=== PATIENT | male | born 1965 | race Caucasian/White ===

== ENCOUNTER 2018-01-27 14:30 | Observation (INO) | payer BC, SELFPAY ==
[2018-01-27] VITALS (10 sets, daily range): BP systolic 121–149; BP diastolic 65–96; PULSE 70–96; RESP 16–18; TEMP 36.3–36.9; O2SAT 93–100; BMI 26.0
--- NOTE | 2018-01-27 | THYROID_PTH ---
PATIENT: JESSICA DSOUZA LOC: [facility] U#:[id number] AGE/SX: 52/M ROOM: [facility]318 RE01/27/[address]: Dr. Jose J Mitchell MD : [id number] BED: 1 DIS: 01/28/2018 SPEC #: [id number] RECD: 01/27/18 12:42 STATUS: ALVARO REVida #: [id number] RUT: 01/27/18 00:[address]: Jose J Mitchell DEPT: SURGICAL PATHOLOGY RECD BY: Alanna Cid ENTERED: 01/27/18 14:46 SP TYPE: THYROID OTHR DR: Out of Town Doctor Tissues: A - Thyroid gland, NOS B - Thyroid gland, NOS Procedures: Frozen Section (charge) Frozen Section [facility] Surgery Specimen Level V HEADER OPERATION: Total thyroidectomy PRE-OP DIAGNOSIS: Multinodular goiter, hyperthyroidism TISSUE SUBMITTED: A - Thyroid gland left lobe sent 1237, B - Thyroid gland right lobe sent 1334 FROZEN SECTION DIAGNOSIS A. Thyroid, left lobe, lobectomy: Multinodular goiter. B. Right thyroid lobe, lobectomy: Multinodular goiter. SUBHA:jaren 01/27/18 MICROSCOPIC DIAGNOSIS A. Left thyroid lobe, lobectomy: Multinodular goiter with adenomatoid nodules. B. Right thyroid lobe, lobectomy: Multinodular goiter with adenomatoid nodules. SUBHA:jaren 01/30/18 MICROSCOPIC DESCRIPTION Slides are reviewed. GROSS DESCRIPTION A - Received fresh for frozen section diagnosis labeled with the patient's name is a specimen designated thyroid left lobe. The specimen consists of a thyroid lobectomy specimen weighing 89.6 gm. The specimen consists of two large nodules. One of the nodules measure 8 x 5 x 4 cm and the second nodule measures 7 x 4 x 3 cm. One of the nodules anterior surfaces is inked green and other nodule anterior surface is inked blue. The posterior surface of both nodules is inked black. Sections of these two large nodules reveal multinodular cut surfaces. The largest nodule measures 4 cm in greatest dimension. Sections of these nodules reveal colloid cut surfaces. No solid nodule is noted. A section of the largest nodule is submitted for frozen section diagnosis. Medical Records Clerk sections are submitted in 12 cassettes. Cassette 1 contains the frozen section. B - Received fresh for frozen section diagnosis labeled with the patient's name is a specimen designated right thyroid lobe. The specimen consists of a thyroid lobectomy specimen weighing 21.2 gm and measuring 6.5 x 4 x 2 cm. A detached piece of nodular tissue is also noted measuring 3 x 2.5 x 1 cm. Serial sections reveal multiple nodules. The largest nodule measures 1 cm in greatest dimension. Two frozen sections are done. Frozen section 1 - nodule in the thyroid lobe, 2 - detached piece of tissue. Medical Records Clerk sections are submitted in 12 cassettes as follows: 1 & 2 - frozen section, 3 - rest of the detached piece of nodule, 4-12 - thyroid lobe. 90% of the specimen is submitted. / SJ:jaren 01/27/18 TC:5 CPT: 50324 x2, 03544 x2, 71269
--- NOTE | 2018-01-27 08:59 | EKG12_ITS ---
Test Reason : PRE OP Blood Pressure : / mmHG Vent. Rate : 068 BPM Atrial Rate : 068 BPM P-R Int : 164 ms QRS Dur : 090 ms QT Int : 380 ms P-R-T Axes : 073 027 047 degrees QTc Int : 404 ms Normal sinus rhythm Low voltage QRS (limb leads) Confirmed by Andreea Chavira ([id number]), non linear editor MOUSTAPHA CASTRO ([id number]) on 01/30/2018 3:39:23 PM Referred By: Jose J Mitchell Confirmed By:Andreea Chavira
[2018-01-27 09:31] LABS: Anion Gap 3 (5-15); BUN 17 mg/dL (7-18); BUN/Creat Ratio 19.1 RATIO (10-20); Calcium,Total 8.7 mg/dL (8.5-10.1); Chloride 102 mmol/L (98-107); Creatinine, Serum 0.89 mg/dL (0.70-1.30); EST Glomerular Filtration Rate 96 mL/min (>60); Est Glom Filt Rate - Afr Amer 116 mL/min (>60); Glucose 87 mg/dL (74-106); Potassium 3.6 mmol/L (3.5-5.1); Sodium Level 137 mmol/L (136-145)
--- NOTE | 2018-01-27 14:25 | PCM.OPRPT ---
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 Although he did not have overt compressive symptoms there is massive nodules limiting the veracity of needle biopsies and requiring ongoing assessment and surgical treatment was offered for definitive evaluation as well as stabilization of his hyperthyroid state and he is eager to proceed. The risks, alternatives, potential benefits, and complications were discussed at length and any questions answered to the patient and/or caregiver's satisfaction. Witnessed informed consent was obtained in the office, and the patient and/or caregiver was agreeable to proceed. Procedure went as follows: The patient was identified in the preoperative holding and brought to the operating room, placed under general anesthesia and intubated. The neuro monitoring electrodes were then placed in the chest and confirmed to be operational in accordance with the park interpretive ranger's directions to allow for recurrent laryngeal nerve monitoring. The neck was then prepped and draped in usual sterile fashion and the planned skin incision was marked 2 finger breadths above the sternal notch with a marking pen. The incisional line was then injected with 1% lidocaine with 100,000 epinephrine for a total of 6 cc. After allowing for vasoconstriction, a 15 blade scalpel was used to make an incision 8 cm in length through the skin and subcutaneous tissues and platysma. A subplatysmal flap was then elevated superiorly and inferiorly to allow placement of the self-retaining thyroid retractor. The strap muscles were then divided in the midline and beginning on the left side the thyroid lobe dissected in a sub-capsular fashion. The inferior, middle, and superior thyroid vessels were individually clamped and ligated with a combination of 3-0 silk sutures and vascular clips. The parathyroid glands were identified along the inferior vascular pedicle and preserved the recurrent laryngeal nerve was also identified and followed to its nerve entry point and the thyroid gland dissected free of its attachments to the trachea at [facility]'s ligament. This was then transected at the isthmus and sent for pathologic evaluation. Attention was then turned to the contralateral side where similar dissection was carried out and completed again with preservation of the laryngeal nerve and parathyroid glands. The wound bed was then irrigated saline solution and examined for sites of bleeding. No significant bleeding was encountered and #7 flat drains were then placed into each tracheoesophageal groove and brought out through a separate stab incision in the neck and secured with 3-0 silk sutures. The strap muscles were then re-approximated in the midline with a running 3-0 Vicryl suture followed by interrupted 3-0 Vicryl sutures to close the platysma and subcutaneous tissues. A 5-0 Monocryl was then used to close the skin followed by Steri-Strips completing the procedure. An NG tube was then placed to decompress the stomach and the patient returned to anesthesia, revived and extubated having tolerated the procedure well. Type of Anesthesia:: General Anesthesiologist: Jose J Christy Special Medications: none Specimen's removed: total thyroid Drains: 2 flat #7 SHAY drains Estimated Blood Loss (mL): 50 mL Fluids Replaced: 1800 mL Grafts/Implants Used: none - Complications none - Admit VTE Documentation VTE Present on Admission: No VTE Mechan Device Prophylaxis: SCD's VTE Pharm Prophylaxis ordered?: No
--- NOTE | 2018-01-27 14:34 | DCINST_ITS ---
- Discharge Diagnoses Current Active Problems: Current Active and Chronic Problems Nontoxic multinodular goiter (Chronic) Thyrotoxicosis without thyroid storm (Chronic) You will use the following diet at home:: No restrictions Discharge Activity: Return to Normal Activity, May not drive while taking narcotic pain medications. Call your doctor if your incision/area has: Increased Pain/ Swelling, Swelling at the incision site Call your doctor if you observe: Fever of 101 or Higher, Uncontrolled pain Cleanse incision/area with: Keep Dressing Clean & Dry Allergies/Adverse Reactions: Allergies No Known Allergies Allergy (Verified 01/20/18 09:31) Medications to take at Discharge Ibuprofen [Motrin] 400 mg PO Q6H PRN PRN 01/20/18 Propranolol HCl [Inderal] 10 mg PO BID 01/20/18 Primary Care Physician: Gaby Chow,Out of [Primary Care Provider] - Test Results: Test results from this visit will be discussed in further detail at your follow- up appointment, if applicable. Please Follow Up With: Jose J Mitchell MD When: 2 weeks
[2018-01-27 15:24] LABS: Calcium,Total 8.7 mg/dL (8.5-10.1)
--- NOTE | 2018-01-27 15:55 | NURSING ---
Upon arrival to unit, patient did not have a dressing over his anterior neck incision or SHAY drain insertion sites. This RN called down to PACU and the PACU nurse states that this is how the patient presented to the PACU. Will continue to monitor. No drainage/leakage noted at this time.
[2018-01-27] MEDS: Ibuprofen 400 MG Tablet PO ×2 (17:54→23:11)
[2018-01-27] MEDS: Lactated Ringers 1,000 ML 120 ML IV (23:11)
[2018-01-28 02:50] VITALS: BP 138/82; PULSE 77; RESP 14; TEMP 36.7; O2SAT 97
[2018-01-28] MEDS: Levothyroxine 137 MCG Tablet PO (06:12)
[2018-01-28] MEDS: Ibuprofen 400 MG Tablet PO (06:12)
[2018-01-28] MEDS: Lactated Ringers 1,000 ML 120 ML IV (07:29)
[2018-01-28 07:40] LABS: Calcium,Total 8.8 mg/dL (8.5-10.1)
[2018-01-28 08:21] VITALS: BP 134/76; PULSE 65; RESP 16; TEMP 36.6; O2SAT 97
--- NOTE | 2018-01-28 08:50 | PCM.PN.SRG ---
Subjective: Reports minimal discomfort at incision, no torrey-oral numbness or tingling. Objective: Well appearing, normal voice with intact neck incision. - Physical Exam General: Alert, Oriented x3 HEENT: Atraumatic, PERRLA, EOMI Neck: Supple, - - incision clean, dry and intact without fluid collection or swelling Lungs: Normal air movement Cardiovascular: Regular rate, Regular Rhythm Psych/Mental Status: Normal Affect, Alert and oriented to time, place, person, mood and affect Vital Signs Temp Pulse Resp BP Pulse Ox 97.9 F 65 16 134/76 H 97 01/28/18 08:21 01/28/18 08:21 01/28/18 08:21 01/28/18 08:21 01/28/18 08:21 Oxygen Delivery Method Room Air Weight: 87.1 kg Body Mass Index (BMI) 26.0 Intake and Output for Last 24 Hours 01/26/18 01/27/18 01/28/18 23:59 23:59 23:59 Intake Total 2712 / 2712 1930 / 1930 Output Total 338 / 338 1380 / 1380 Balance 2374 / 2374 550 / 550 Laboratory Tests Past 24 Hrs 01/27/18 01/27/18 01/28/18 09:08 15:00 06:26 Sodium 137 Potassium 3.6 Chloride 102 Carbon Dioxide 32.0 Anion Gap 3 L BUN 17 Creatinine 0.89 Est GFR (MDRD) Af Amer 116 Est GFR (MDRD) Non-Af 96 BUN/Creatinine Ratio 19.1 Glucose 87 Calcium 8.7 8.7 8.8 Medical Necessity - Tobacco Use Smoking Status: Current every day smoker Tobacco Use: Cigarettes Assessment/Plan Doing well after total thyroidectomy for toxic multinodular goiter. Drain output declining and removed at bedside this AM. Stable calcium level noted and discharge to home planned.
== END 2018-01-28 10:32 | disposition home or self-care (01) ==
LOC: SDC 16:19
PROVIDERS: Admitting Provider Otolaryngology; Referring Provider Otolaryngology; Visit Provider Otolaryngology
PROC: (CPT 60240; principal; 2018-01-27 10:05)
DX: E05.20 Thyrotoxicosis with toxic multinodular goiter without thyrotoxic crisis or storm (principal); F17.210 Nicotine dependence, cigarettes, uncomplicated
CPT/HCPCS: 00320; 60240; 36415; 80048; 82310; 88307; 88331; 88332; 93005; 96360; 96361; 99218; J7120; G0378; G0379; J2405

== ENCOUNTER → 2024-08-21 | Outpatient (CLI) | payer BC, SELFPAY ==
--- NOTE | 2024-08-21 09:40 | RAD_ITS ---
EXAM: XR Abdomen, 1 View CLINICAL INDICATION: CALCULUS OF KIDNEY TECHNIQUE: Frontal supine view of the abdomen/pelvis. COMPARISON: No relevant prior studies available. FINDINGS: GASTROINTESTINAL TRACT: Fecal retention in the colon consistent with constipation. No dilation. ORGANS: Stool burden limits the evaluation for subtle renal calculus. No obvious nephrolithiasis. BONES/JOINTS: Unremarkable. No acute fracture. RAD/Abdomen Single View IMPRESSION: 1. Fecal retention in the colon consistent with constipation. 2. Stool burden limits the evaluation for subtle renal calculus. No obvious n ephrolithiasis. Reading [facility]
== END | disposition home or self-care (01) ==
LOC: RAD 09:34
PROVIDERS: PCP Nurse Practitioner Family; Referring Provider Urology; Visit Provider Urology
DX: N20.0 Calculus of kidney (principal)
CPT/HCPCS: 74018

== ENCOUNTER → 2024-10-11 | Outpatient (CLI) | payer BC, SELFPAY ==
--- NOTE | 2024-10-11 11:07 | CT_ITS ---
PROCEDURE: ABDOMEN/PELVIS WITHOUT CONT 10/11/2024 REASON FOR EXAM: CALCULUS OF KIDNEY Left flank pain. History of renal calculi. TECHNIQUE: Abdomen and pelvis CT without intravenous contrast. Noncontrast technique limits evaluation of the abdominal and pelvic viscera. Coronal and Sagittal reconstruction series were provided. One or more dose reduction techniques were used (e.g., Automated exposure control, adjustment of the mA and/or kV according to patient size, use of iterative reconstruction technique). Dose report: CTDI L volume: 11.67 mGy. DLP: 638.53. PATIENT PREPARATION: Per protocol ORAL CONTRAST TYPE: None. COMPARISON: None FINDINGS: Lung bases: Mild dependent atelectasis Liver: Findings suggestive of a 2 cm cyst in the medial aspect of the left lobe of the liver. Gallbladder: Unremarkable Spleen: Normal size. Pancreas: Normal size. No surrounding inflammation. Adrenals: Unremarkable Kidneys: 1.6 cm cyst in the lower pole of the right kidney. Tiny nonobstructive calculus in the lower pole calyx of the left kidney. Minimal fullness of the left renal pelvis although no daniel hydronephrosis is seen. Bladder: Unremarkable. Prostatic enlargement with central dense calcifications. Small bilateral inguinal hernias containing fat. Bowel: Colonic diverticulosis without diverticulitis. Appendix: Unremarkable Lymph nodes: Unremarkable. Vasculature: Mild diffuse atherosclerotic calcifications are noted. Peritoneum / Retroperitoneum: Small volume free fluid in the pelvis nonspecific and usually physiologic in a female patient of this age. Bones: Degenerative changes of the spine. CT/Abdomen/Pelvis without Cont IMPRESSION: Nonobstructive left intrarenal calculus. Fullness of the left renal pelvis although no daniel hydronephrosis seen. No ob structive uropathy is seen. Cyst in the left lobe of the liver as well as in the inferior pole of the right kidney. OVERALL FINAL ASSESSMENT: . LI-RADS is not meant to be used in patients <18 years or patients with cirrhosi s due to congenital hepatic fibrosis or due to vascular disorders, because these patients have a lower chance of developing HC C. Reading Location: [place] [id number]
== END | disposition home or self-care (01) ==
PROVIDERS: PCP Nurse Practitioner Family; Referring Provider Urology; Visit Provider Urology
DX: N20.0 Calculus of kidney (principal)
CPT/HCPCS: 74176